=== PATIENT | male | born 1975 | race Two or more races ===

== ENCOUNTER 2019-06-20 00:04 | Emergency (ER) | payer MEDICARE ==
[~2019-06-20] VITALS: Ht 172.7 cm; Wt 75.0 kg
[2019-06-20] MEDS ORDERED: DIVA125T2 PO (00:21)
[2019-06-20 02:05] LABS: GLUCOSE,POINT OF CARE 90 MG/DL (70-110)
[2019-06-20 05:01] VITALS: BP 138/84
== END 2019-06-20 05:01 | disposition home or self-care (01) ==
LOC: EMS 00:05
DX: F10.129 Alcohol abuse with intoxication, unspecified (principal); F17.210 Nicotine dependence, cigarettes, uncomplicated; Z79.899 Other long term (current) drug therapy